=== PATIENT | male | born 1980 | race Caucasian/White ===

== ENCOUNTER 2019-01-27 08:33 | Day surgery (SDC) | payer MEDICARE, OTHER ==
[2019-01-25 16:17] VITALS: BMI 11.5
[~2019-01-27 08:33] MED LIST: LACTATED RINGERS 1,000 ML IV SCH
[2019-01-27] MEDS ORDERED: LIDOCAINE 1% 20 ML VIAL (10MG/ML) FOR IV START INTRADERMA ONE (09:20)
[2019-01-27 09:28] VITALS: RESP 18; TEMP 98.3
[2019-01-27 09:34] LABS: Glucose,Whole Blood 90 mg/dL (75-99)
[2019-01-27] MEDS ORDERED: PROPOFOL 10 MG/ML 20 ML VIAL IV ONE (09:45)
[2019-01-27] MEDS ORDERED: LIDOCAINE 1% INJ 10MG/ML (20 ML MDV) ONE (09:45)
--- NOTE | 2019-01-27 10:40 | P.PCN ---
Date of Procedure: 01/27/19 Procedure(s) Performed: Procedure: 1. Esophagogastroduodenoscopy and biopsy. 2. Colonoscopy and biopsy. Preoperative diagnosis: Nausea, dysphagia and diarrhea. Postoperative diagnosis: 1. Gastritis and suspected Tara esophagitis. 2. Small polyp duodenal bulb. 3. Diverticulosis of colon. 4. Biopsies obtained from the duodenum, duodenal bulb polyp, antrum, esophagus and proximal esophagus as well as terminal ileum and right colon. Preparation: HalfLytely prep. Sedation: Was provided by anesthesia. Brief clinical history: The patient is a 38-year-old male who I have evaluated in the office last month because of complaints of nausea, dysphagia and diarrhea. He reported 4-5 diarrheic movements a day. 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 The patient is on hydrocortisone for adrenal insufficiency. He had his thyroid removed at age 6 and is on thyroid replacement. 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 Procedure: With the patient on his left lateral decubitus position and after informed consent and adequate sedation, I passed a Olympus-GIF H190 video upper endoscope through the cricopharyngeus down the esophagus. The proximal esophagus showed whitish sticky exudates that could represent tara infection. The middle and distal esophagus showed no such features. GE junction was around 41 cm from the incisors and there was no definite stricture or hang up to the advancement of the endoscope. The endoscope was then passed into the stomach which was insufflated with air and inspected in detail including the retroflex view of the cardia. There was diffuse gastritis but no ulcers or bleeding. Pyloric channel did not show any ulcers. Duodenal bulb showed a small flat polyp in the proximal aspect that appeared benign. Post bulbar area and descen ding duodenum within normal limits. I obtained biopsies from the descending duodenum, duodenal bulb polyp, antrum and esophagus as well as in the proximal esophagus to rule out in detail esophagitis. I then proceeded to perform the colonoscopy. Perianal area did not show any fissures or fistulas. There were no masses felt on digital rectal examination. The Olympus CF H190L video colonoscope was then inserted in the rectum in the usual fashion and advanced to the cecum. I was not able to pass the endoscope into the terminal ileum but I was able to pass the biopsy forceps and obtain blind biopsy from the terminal ileum. There were multiple diverticular orifices seen scattered in the colon mostly in the sigmoid and left side. The mucosa appeared healthy. I obtained biopsies from the right colon to rule out microscopic colitis. The patient tolerated the procedure well. Plan: The patient was reassured. I will await pathology results and make further recommendations based on his course and biopsy results. I will keep you updated on his progress.
[2019-01-27 10:44] VITALS: BP 124/88; PULSE 91
== END 2019-01-27 11:28 | disposition home or self-care (01) ==
LOC: ORWHC2ENDO 08:33
DX: K29.80 Duodenitis without bleeding (principal); K31.9 Disease of stomach and duodenum, unspecified; K21.9 Gastro-esophageal reflux disease without esophagitis; K29.70 Gastritis, unspecified, without bleeding; K31.7 Polyp of stomach and duodenum; K57.30 Diverticulosis of large intestine without perforation or abscess without bleeding; E27.40 Unspecified adrenocortical insufficiency; E89.0 Postprocedural hypothyroidism; Z85.850 Personal history of malignant neoplasm of thyroid; M41.9 Scoliosis, unspecified; F32.9 Major depressive disorder, single episode, unspecified; J30.9 Allergic rhinitis, unspecified; Z79.890 Hormone replacement therapy; Z79.52 Long term (current) use of systemic steroids; Z79.899 Other long term (current) drug therapy
CPT/HCPCS: 45380; 43239; J2001; J2704; 88305; 88312

== ENCOUNTER 2022-02-10 12:11 | Emergency (ER) | payer MEDICARE, OTHER ==
[2022-02-10 12:52] VITALS: TEMP 98
--- NOTE | 2022-02-10 13:12 | XR ---
EXAMINATION TYPE: XR chest 2V DATE OF EXAM: 02/10/2022 COMPARISON: Chest x-ray November 30, 2011 HISTORY: Chest and left-sided rib pain after recent fall injury. TECHNIQUE: Frontal and lateral views of the chest are obtained. FINDINGS: Osseous structures redemonstrated demineralized. Underlying marked scoliosis is redemonstr ated. Chronic parenchymal changes bilaterally without suspicious new focal airspace opacity, pleural effusion, or pneumothorax seen. Cardiac silhouette size currently mildly enlarged. Surgical clips in the central upper abdomen are redemonstrated.. IMPRESSION: Chronic changes with new cardiomegaly. No new suspicious acute pulmonary process is note d.
[2022-02-10] MEDS ORDERED: ACET/COD 300 MG/30 MG STARTER PACK 6 TAB BTL PO STA (14:59)
--- NOTE | 2022-02-10 15:02 | ED ---
General Adult HPI - General Chief complaint: Recheck/Abnormal Lab/Rx Stated complaint: FALL-RibPain,Blood in Stool Time Seen by Provider: 02/10/22 14:14 Source: patient, RN notes reviewed Mode of arrival: ambulatory Limitations: no limitations - History of Present Illness Initial comments: This is a 41-year-old male who presents the emergency department for left-sided rib pain. Patient states that he tripped on a sidewalk last week and fell, landing on his left side. The pain has not gotten much better, and he is having difficulty sleeping at night. However, the patient states that he is not taking any medication for his pain and is only using a heating pad. The pain does make it hard for him to breathe. Patient denies any fevers, chills, sore throat, visual changes, cough, dyspnea, chest pain, palpitations, abdominal pain, nausea, vomiting, diarrhea, constipation, dysuria, hematuria, back pain, headaches, or weakness. Onset/Timin -: week(s) - Related Data Home Medications Medication Instructions Recorded Confirmed Cetirizine HCl [Zyrtec] 10 mg PO DAILY 01/25/19 01/25/19 Cholecalciferol [Vitamin D3] 10,000 unit PO DAILY 01/25/19 01/25/19 Cyanocobalamin (Vitamin B-12) 1,000 mcg PO DAILY 01/25/19 01/25/19 [Vitamin B-12] FLUoxetine HCL [PROzac] 10 mg PO DAILY 01/25/19 01/25/19 Fludrocortisone [Florinef] 0.1 mg PO DAILY 01/25/19 01/25/19 Hydrocortisone 10 mg PO DAILY@1600 01/25/19 01/27/19 Hydrocortisone [Cortef] 20 mg PO DAILY@0800 01/25/19 01/27/19 Levothyroxine Sodium [Synthroid] 112 mcg PO DAILY 01/25/19 01/25/19 Potassium 99 mg PO DAILY 01/25/19 01/25/19 Previous Rx's Medication Instructions Recorded Naproxen 500 mg PO BID PRN #20 tablet 02/10/22 Allergies Allergy/AdvReac Type Severity Reaction Status Date / Time No Known Allergies Allergy Verified 02/10/22 12:50 Review of Systems ROS Statement: Those systems with pertinent positive or pertinent negative responses have been documented in the HPI. ROS Other: All systems not noted in ROS Statement are negative. Past Medical History Past Medical History: Cancer, GERD/Reflux Additional Past Medical History / Comment(s): MEDULLARY THYROID CA. SEVERE DIARRHEA CHRONIC, DYSPHAGIA. HX PHEOCHROMOCYTOMA. HAS NODULE ON LIVER. History of Any Multi-Drug Resistant Organisms: None Reported Additional Past Surgical History / Comment(s): THYROIDECTOMY; EXC THYROID NODULES. BRODIE ADRENAL REMOVAL. Past Anesthesia/Blood Transfusion Reactions: No Reported Reaction Past Psychological History: No Psychological Hx Reported Smoking Status: Never smoker Past Alcohol Use History: None Reported Past Drug Use History: Marijuana - Past Family History Mother Additional Family Medical History / Comment(s): MULTIPLE ENDOCRINE NEOPLASIA, TYPE 2B. Brother(s) Family Medical History: Cancer Additional Family Medical History / Comment(s): MEDULLARY THYROID CA General Exam Limitations: no limitations General appearance: alert, in no apparent distress Head exam: Present: atraumatic, normocephalic, normal inspection Respiratory exam: Present: normal lung sounds bilaterally, other (Tenderness to palpation of the left ribs.). Absent: respiratory distress, wheezes, rales, rhonchi, stridor Cardiovascular Exam: Present: regular rate, normal rhythm, normal heart sounds. Absent: systolic murmur, diastolic murmur, rubs, gallop, clicks Neurological exam: Present: alert, oriented X3, CN II-XII intact Psychiatric exam: Present: normal affect, normal mood Skin exam: Present: warm, dry, intact, normal color. Absent: rash Course Vital Signs 02/10/22 02/10/22 12:50 15:12 Temperature 98 F Pulse Rate 116 H 102 H Respiratory 16 18 Rate Blood Pressure 120/82 125/89 O2 Sat by Pulse 91 L 96 Oximetry Medical Decision Making - Medical Decision Making This is a 41-year-old male who presents the emergency department for left rib pain after fall. X-ray obtained, which did not reveal any signs of a rib fracture or other injury. He did have a new cardiomegaly, which he will discuss with his primary care provider. Patient was given a prescription for naproxen and a starter pack for Tylenol #3. Advised he continue to apply heat. Reminded him to take several deep breaths a day to avoid developing a secondary pneum onia. Return precautions reviewed in depth, the patient is instructed to return to the emergency department with any new, worsening, or concerning symptoms. Patient verbalized understanding. This case was discussed in detail with the attending ED physician. Presentation, findings, and treatment plan discussed in detail as well. - Radiology Data Radiology results: report reviewed, image reviewed Disposition Clinical Impression: Rib pain on left side Disposition: HOME SELF-CARE Instructions (If sedation given, give patient instructions): Costochondritis (ED) Additional Instructions: Return to the emergency department with any new, worsening, or concerning symptoms. Take the naproxen twice daily as needed for pain. Do not take any other antiinflammatories such as Ibuprofen with the Naproxen. Take the Tylenol #3 at night until you know how it affects you. Continue to apply heat. Remember to take deep breaths several times a day to avoid developing a secondary pneumonia. Follow-up with your primary care provider in 1 to 2 days. Prescriptions: Naproxen 500 mg PO BID PRN #20 tablet PRN Reason: Pain Is patient prescribed a controlled substance at d/c from ED?: No Referrals: Ulisses Teran MD [Primary Care Provider] - 1-2 days
[2022-02-10 15:13] VITALS: BP 125/89; PULSE 102; RESP 18
== END 2022-02-10 15:13 | disposition home or self-care (01) ==
LOC: EC 12:11
DX: R07.81 Pleurodynia (principal); W18.09XA Striking against other object with subsequent fall, initial encounter
CPT/HCPCS: 71046; 99283

== ENCOUNTER 2022-02-13 21:42 | Inpatient (IN) | payer MEDICARE, OTHER ==
[2022-02-13 22:11] LABS: Basophils % (A) 0 %; Eosinophils % (A) 0 %; HCT 24.8 % (39.0-53.0); HGB 7.5 gm/dL (13.0-17.5); Hypochromasia Marked; Lymphocytes % (A) 7 %; MCH 23.3 pg (25.0-35.0); MCHC 30.1 g/dL (31.0-37.0); MCV 77.5 fL (80.0-100.0); Mean Platelet Volume 6.8; Monocytes # (A) 0.4 k/uL (0-1.0); Monocytes % (A) 3 %; Neutrophils # (A) 12.9 k/uL (1.3-7.7); Neutrophils % (A) 90 %; Platelet Count 722 k/uL (150-450); RBC 3.21 m/uL (4.30-5.90); RDW 13.6 % (11.5-15.5); WBC 14.5 k/uL (3.8-10.6)
[2022-02-13 22:21] LABS: ALT 17 U/L (4-49); AST 18 U/L (17-59); African American GFR (CKD) >90 (>60 ml/min/1.73 sqM); Albumin 3.5 g/dL (3.5-5.0); Alkaline Phosphatase 132 U/L (38-126); Anion Gap 6 mmol/L; Blood Urea Nitrogen 15 mg/dL (9-20); Calcium 8.3 mg/dL (8.4-10.2); Carbon Dioxide 32 mmol/L (22-30); Chloride 101 mmol/L (98-107); Glucose 116 mg/dL (74-99); Non-African American GFR(CKD) >90 (>60 ml/min/1.73 sqM); Sodium 139 mmol/L (137-145); Total Bilirubin 0.1 mg/dL (0.2-1.3); Total Protein 6.9 g/dL (6.3-8.2)
--- NOTE | 2022-02-14 01:08 | ED ---
GI Bleed HPI - General Chief complaint: GI Bleed Stated complaint: Abnormal labs Time Seen by Provider: 02/14/22 00:41 Source: patient, RN notes reviewed, old records reviewed Mode of arrival: ambulatory Limitations: no limitations - History of Present Illness Initial comments: This is a 41-year-old male DF for evaluation. Patient outpatient lab tests showing low hemoglobin. At this point patient has mild nausea no vomiting no abdominal pain history of normal colonoscopy. Patient also has underlying cancer MD complaint: blood on toilet paper, blood streaked stool -: week(s) Radiation: none Quality: painless Consistency: constant Improves with: none Worsens with: bowel movement Associated Symptoms: nausea, weakness Treatments Prior to Arrival: none - Related Data Home Medications Medication Instructions Recorded Confirmed Cetirizine HCl [Zyrtec] 10 mg PO DAILY 01/25/19 01/25/19 Cholecalciferol [Vitamin D3] 10,000 unit PO DAILY 01/25/19 01/25/19 Cyanocobalamin (Vitamin B-12) 1,000 mcg PO DAILY 01/25/19 01/25/19 [Vitamin B-12] FLUoxetine HCL [PROzac] 10 mg PO DAILY 01/25/19 01/25/19 Fludrocortisone [Florinef] 0.1 mg PO DAILY 01/25/19 01/25/19 Hydrocortisone 10 mg PO DAILY@1600 01/25/19 01/27/19 Hydrocortisone [Cortef] 20 mg PO DAILY@0800 01/25/19 01/27/19 Levothyroxine Sodium [Synthroid] 112 mcg PO DAILY 01/25/19 01/25/19 Potassium 99 mg PO DAILY 01/25/19 01/25/19 Previous Rx's Medication Instructions Recorded Naproxen 500 mg PO BID PRN #20 tablet 02/10/22 Allergies Allergy/AdvReac Type Severity Reaction Status Date / Time No Known Allergies Allergy Verified 02/13/22 21:50 Review of Systems ROS Statement: Those systems with pertinent positive or pertinent negative responses have been documented in the HPI. ROS Other: All systems not noted in ROS Statement are negative. Past Medical History Past Medical History: Cancer, GERD/Reflux Additional Past Medical History / Comment(s): MEDULLARY THYROID CA. SEVERE DIARRHEA CHRONIC, DYSPHAGIA. HX PHEOCHROMOCYTOMA. HAS NODULE ON LIVER, scoliosis History of Any Multi-Drug Resistant Organisms: None Reported Additional Past Surgical History / Comment(s): THYROIDECTOMY; EXC THYROID NODULES. BRODIE ADRENAL REMOVAL. Past Anesthesia/Blood Transfusion Reactions: No Reported Reaction Past Psychological History: No Psychological Hx Reported Smoking Status: Never smoker Past Alcohol Use History: None Reported Past Drug Use History: Marijuana - Past Family History Mother Additional Family Medical History / Comment(s): MULTIPLE ENDOCRINE NEOPLASIA, TYPE 2B. Brother(s) Family Medical History: Cancer Additional Family Medical History / Comment(s): MEDULLARY THYROID CA General Exam Limitations: no limitations General appearance: alert, in no apparent distress, cachectic Head exam: Present: atraumatic, normocephalic, normal inspection Eye exam: Present: normal appearance, PERRL, EOMI. Absent: scleral icterus, conjunctival injection, periorbital swelling ENT exam: Present: normal exam, mucous membranes moist Neck exam: Present: normal inspection. Absent: tenderness, meningismus, lymphadenopathy Respiratory exam: Present: normal lung sounds bilaterally. Absent: respiratory distress, wheezes, rales, rhonchi, stridor Cardiovascular Exam: Present: normal rhythm, tachycardia, normal heart sounds. Absent: systolic murmur, diastolic murmur, rubs, gallop, clicks GI/Abdominal exam: Present: soft, normal bowel sounds. Absent: distended, tenderness, guarding, rebound, rigid Rectal exam: Present: bloody stool Extremities exam: Present: normal inspection, full ROM, normal capillary refill. Absent: tenderness, pedal edema, joint swelling, calf tenderness Back exam: Present: normal inspection Neurological exam: Present: alert, oriented X3, CN II-XII intact Psychiatric exam: Present: normal affect, normal mood Skin exam: Present: warm, dry, intact, normal color. Absent: rash Course Vital Signs 02/13/22 02/14/22 21:47 01:12 Temperature 99.1 F Pulse Rate 122 H 110 H Respiratory 20 18 Rate Blood Pressure 143/91 141/107 O2 Sat by Pulse 95 99 Oximetry - Reevaluation(s) Reevaluation #1: 02/14/22 01:44 Medical record is reviewed Reevaluation #2: 02/14/22 01:44 Patient informed of results and questions answered Reevaluation #3: 02/14/22 01:44 Patient has no pain no bloody bowel movements here in the ER - Consultations Consultation #1: Spoke with Dr. matson agrees to admit the patient will consult GI Medical Decision Making - Medical Decision Making 41 male DEL with what a week and a half of bloody bright bloody bowel movements. Most recently today. Patient does have anemia and 7 n half, blood pressure stable patient will be admitted for GI evaluation treatment - Lab Data Result diagrams: 02/13/22 21:53 02/13/22 21:53 Lab Results 02/13/22 02/13/22 02/13/22 Range/Units 21:53 21:53 21:53 WBC 14.5 H (3.8-10.6) k/uL RBC 3.21 L (4.30-5.90) m/uL Hgb 7.5 L (13.0-17.5) gm/dL Hct 24.8 L (39.0-53.0) % MCV 77.5 L (80.0-100.0) fL MCH 23.3 L (25.0-35.0) pg MCHC 30.1 L (31.0-37.0) g/dL RDW 13.6 (11.5-15.5) % Plt Count 722 H (150-450) k/uL MPV 6.8 Neutrophils % 90 % Lymphocytes % 7 % Monocytes % 3 % Eosinophils % 0 % Basophils % 0 % Neutrophils # 12.9 H (1.3-7.7) k/uL Lymphocytes # 1.0 (1.0-4.8) k/uL Monocytes # 0.4 (0-1.0) k/uL Eosinophils # 0.0 (0-0.7) k/uL Basophils # 0.0 (0-0.2) k/uL Hypochromasia Marked APTT 22.3 (22.0-30.0) sec Sodium 139 (137-145) mmol/L Potassium 4.0 (3.5-5.1) mmol/L Chloride 101 (98-107) mmol/L Carbon Dioxide 32 H (22-30) mmol/L Anion Gap 6 mmol/L BUN 15 (9-20) mg/dL Creatinine 0.81 (0.66-1.25) mg/dL Est GFR (CKD-EPI)AfAm >90 (>60 ml/min/1.73 sqM) Est GFR (CKD-EPI)NonAf >90 (>60 ml/min/1.73 sqM) Glucose 116 H (74-99) mg/dL Calcium 8.3 L (8.4-10.2) mg/dL Total Bilirubin 0.1 L (0.2-1.3) mg/dL AST 18 (17-59) U/L ALT 17 (4-49) U/L Alkaline Phosphatase 132 H (38-126) U/L Troponin I (0.000-0.034) ng/mL Total Protein 6.9 (6.3-8.2) g/dL Albumin 3.5 (3.5-5.0) g/dL 02/13/22 Range/Units 21:53 WBC (3.8-10.6) k/uL RBC (4.30-5.90) m/uL Hgb (13.0-17.5) gm/dL Hct (39.0-53.0) % MCV (80.0-100.0) fL MCH (25.0-35.0) pg MCHC (31.0-37.0) g/dL RDW (11.5-15.5) % Plt Count (150-450) k/uL MPV Neutrophils % % Lymphocytes % % Monocytes % % Eosinophils % % Basophils % % Neutrophils # (1.3-7.7) k/uL Lymphocytes # (1.0-4.8) k/uL Monocytes # (0-1.0) k/uL Eosinophils # (0-0.7) k/uL Basophils # (0-0.2) k/uL Hypochromasia APTT (22.0-30.0) sec Sodium (137-145) mmol/L Potassium (3.5-5.1) mmol/L Chloride (98-107) mmol/L Carbon Dioxide (22-30) mmol/L Anion Gap mmol/L BUN (9-20) mg/dL Creatinine (0.66-1.25) mg/dL Est GFR (CKD-EPI)AfAm (>60 ml/min/1.73 sqM) Est GFR (CKD-EPI)NonAf (>60 ml/min/1.73 sqM) Glucose (74-99) mg/dL Calcium (8.4-10.2) mg/dL Total Bilirubin (0.2-1.3) mg/dL AST (17-59) U/L ALT (4-49) U/L Alkaline Phosphatase (38-126) U/L Troponin I <0.012 (0.000-0.034) ng/mL Total Protein (6.3-8.2) g/dL Albumin (3.5-5.0) g/dL Disposition Clinical Impression: Gastrointestinal hemorrhage, Anemia Disposition: ADMITTED IP TO THIS [facility] Condition: Serious Is patient prescribed a controlled substance at d/c from ED?: No Referrals: Ulisses Teran MD [Primary Care Provider] - 1-2 days
[2022-02-14] MEDS ORDERED: LORazepam 2 MG/ML INJ IV PRN (01:36)
[2022-02-14] MEDS ORDERED: ONDANSETRON 4 MG/2 ML VIAL IVP PRN (01:36)
[2022-02-14] MEDS ORDERED: NALOXONE 0.4 MG/ML 1 ML VIAL IV PRN (01:36)
[2022-02-14] MEDS ORDERED: ALBUTEROL HFA INHALER INHALATION PRN (09:22)
[2022-02-14] MEDS ORDERED: HYDROCORTISONE 10 MG TAB PO SCH ×2 (09:30→16:00)
[2022-02-14] MEDS: FLUDROCORTISONE 0.1 MG TAB PO SCH (11:05)
[2022-02-14] MEDS: LEVOTHYROXINE 112 MCG TAB PO SCH (11:06)
[2022-02-14] MEDS: SODIUM CHLORIDE 0.9% 1,000 ML IV SCH ×2 (11:10→23:04)
[2022-02-14 11:42] LABS: HCT 23.1 % (39.0-53.0); Hypochromasia Marked; MCH 23.6 pg (25.0-35.0); MCV 78.9 fL (80.0-100.0); Platelet Count 662 k/uL (150-450); RBC 2.93 m/uL (4.30-5.90); RDW 13.8 % (11.5-15.5); WBC 10.6 k/uL (3.8-10.6)
[2022-02-14 12:05] LABS: HGB 6.9 gm/dL (13.0-17.5)
--- NOTE | 2022-02-14 13:22 | P.CONS ---
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 States he normally has 1-2 bowel movements a day. Started having blood mixed in his stool 2-3 days ago. Continues to have bright red blood in the toilet. No previous history of GI bleed. He did undergo EGD and colonoscopy in [address] Souza. EGD reported findings of gastritis, esophagitis, and small duodenal polyp. Colonoscopy was significant for diverticulosis. Patient states he has no abdominal pain and no cramping related to bowel movements. Has no nausea or vomiting. He he was noted to have a low hemoglobin on admission of 7.5. apparently had been following with his primary care physician and had outpatient blood work done and was called and told to go to the emergency department for anemia. States he is currently not having any abdominal pain, nausea or vomiting. He did have a loose bowel movement this morning with bright red blood in toilet. Patient also takes naproxen 500 mg twice daily as needed. Review of Systems REVIEW OF SYSTEMS: CARDIOPULMONARY: No chest pain or shortness of breath. Gastrointestinal: No abdominal pain. No nausea or vomiting. No hematemesis, coffee-ground emesis. Bright red blood per rectum. GENITOURINARY: No dysuria or hematuria. MUSCULOSKELETAL: Reports normal range of motion., Joint pain. SKIN: No rashes. No jaundice. ENDOCRINE: No chills, fevers. No excessive weight gain or loss. No polydipsia or polyuria. PSYCHIATRIC: Unremarkable. NEUROLOGY: No change in mental status. Denies dizziness, headache. ENT: Vision unremarkable. CONSTITUTIONAL: No recent weight loss. No fever, chills, night sweats. Past Medical History Past Medical History: Cancer, GERD/Reflux Additional Past Medical History / Comment(s): MEDULLARY THYROID CA. SEVERE DIARRHEA CHRONIC, DYSPHAGIA. HX PHEOCHROMOCYTOMA. HAS NODULE ON LIVER, scolio sis History of Any Multi-Drug Resistant Organisms: None Reported Additional Past Surgical History / Comment(s): THYROIDECTOMY; EXC THYROID NODULES. BRODIE ADRENAL REMOVAL. Past Anesthesia/Blood Transfusion Reactions: No Reported Reaction Past Psychological History: No Psychological Hx Reported Smoking Status: Never smoker Past Alcohol Use History: None Reported Additional Past Alcohol Use History / Comment(s): ETOH - SOBER SINCE 2016. Past Drug Use History: Marijuana Additional Drug Use History / Comment(s): USE 1-2X PER DAY - Past Family History Mother Additional Family Medical History / Comment(s): MULTIPLE ENDOCRINE NEOPLASIA, TYPE 2B. Brother(s) Family Medical History: Cancer Additional Family Medical History / Comment(s): MEDULLARY THYROID CA Medications and Allergies Home Medications Medication Instructions Recorded Confirmed Type Hydrocortisone 20 mg PO DAILY 01/25/19 02/14/22 History Levothyroxine Sodium [Synthroid] 112 mcg PO DAILY 01/25/19 02/14/22 History Naproxen 500 mg PO BID PRN #20 tablet 02/10/22 02/14/22 Rx Albuterol Inhaler [Ventolin Hfa 2 puff INHALATION RT-Q4H PRN 02/14/22 02/14/22 History Inhaler] Albuterol Nebulized [Ventolin 2.5 mg INHALATION RT-Q6H PRN 02/14/22 02/14/22 History Nebulized] Fludrocortisone Acetate 0.1 mg PO DAILY 02/14/22 02/14/22 History Hydrocortisone [Cortef] 15 mg PO DAILY@1600 02/14/22 02/14/22 History Allergies Allergy/AdvReac Type Severity Reaction Status Date / Time No Known Allergies Allergy Verified 02/14/22 08:42 Physical Exam Vitals: Vital Signs Temp Pulse Pulse Resp BP BP Pulse Ox 02/14/22 05:10 98.1 F 110 H 20 135/84 98 02/14/22 04:24 108 H 18 123/99 02/14/22 04:05 103 H 18 152/118 99 02/14/22 01:12 110 H 18 141/107 99 02/13/22 21:47 99.1 F 122 H 20 143/91 95 Intake and Output 02/13/22 02/14/22 02/14/22 22:59 06:59 14:59 Intake Total 0 Balance 0 Intake: Oral 0 Other: Voiding Method Toilet # Voids 1 1 # Bowel Movements 1 Weight 39.009 kg 39.009 kg General appearance: The patient is alert, oriented, appears in no acute distress. HET: Head is normocephalic and atraumatic. Conjunctiva pink. Sclera anicteric. Neck: Supple without lymphadenopathy. Trachea midline. Heart: S1 S2. Regular rate and rhythm. Lungs: Clear to auscultation. Abdomen: Soft, thin, nontender, nondistended with bowel sounds. No guarding or rigidity. Skin: No rashes. No jaundice. Extremities: Normal skin color and turgor. No pedal edema. Neurological: No focal deficits. Alert and oriented x3. Results CBC & Chem 7: 02/14/22 11:08 02/13/22 21:53 Labs: Abnormal Lab Results - Last 24 Hours (Table) 02/13/22 02/13/22 Range/Units 21:53 21:53 WBC 14.5 H (3.8-10.6) k/uL RBC 3.21 L (4.30-5.90) m/uL Hgb 7.5 L (13.0-17.5) gm/dL Hct 24.8 L (39.0-53.0) % MCV 77.5 L (80.0-100.0) fL MCH 23.3 L (25.0-35.0) pg MCHC 30.1 L (31.0-37.0) g/dL Plt Count 722 H (150-450) k/uL Neutrophils # 12.9 H (1.3-7.7) k/uL Carbon Dioxide 32 H (22-30) mmol/L Glucose 116 H (74-99) mg/dL Calcium 8.3 L (8.4-10.2) mg/dL Total Bilirubin 0.1 L (0.2-1.3) mg/dL Alkaline Phosphatase 132 H (38-126) U/L Assessment and Plan (1) Lower GI bleed Narrative/Plan: 41-year-old who presented to the emergency department with complaints of lower GI bleed. Patient has a history of chronic diarrhea but has noticed bright red blood mixed with his stool for the last 2 days duration. He again had an episode today, is painless bleeding. No nausea or vomiting. He was noted to have an outpatient labs at that time showed his hemoglobin low and was directed to come to the emergency department. He was known to have a hemoglobin of 7.5 on admission. He was recently seen here 4 days ago in the emergency department for a fall and was discharged home. He does have a history of a prior EGD and colonoscopy done with Dr. Souza that was significant for gastritis and esophagitis. Colonoscopy significant for diverticulosis. Possible etiologies include diverticular bleed, large internal hemorrhoids, AVM, or other possible etiologies. There is no gastroenterology available this weekend, if patient is stable could consider possible discharge with outpatient colonoscopy next week. However if drop in hemoglobin or continued bleeding would recommend patient stay admitted to the hospital and can proceed with colonoscopy on Thursday. Current Visit: Yes Status: Acute Code(s): K92.2 - GASTROINTESTINAL HEMORRHAGE, UNSPECIFIED SNOMED Code(s): 70696990 (2) Anemia Current Visit: Yes Status: Acute Code(s): D64.9 - ANEMIA, UNSPECIFIED SNOMED Code(s): 880822870 Plan: 1. Continue symptomatic and supportive care 2. Daily CBCs, transfuse for hemoglobin less than 7 3. Type and screen and 1 unit PRBC transfused in order 4. Protonix 40 mg daily 5. Patient had a drop in his hemoglobin this morning, 1 unit PRBC transfusion ordered. Recommend inpatient stay with EGD/colonoscopy on Thursday. 6. Clear liquid diet 7. Avoid NSAIDs Thank you for allowing us to participate in the care of the patient, the GI service will be on stand by, gastroenterology will not be available at the hospital this weekend. If further evaluation by gastroenterology is required the patient will need transfer as per the primary team's discretion. Dr. Ping Muller I agree with the dictator's note, documented as a scribe by Lauryn Pennington.
--- NOTE | 2022-02-14 14:38 | P.HPIM ---
History of Present Illness H&P Date: 02/14/22 Chief Complaint: Bloody stools This is a pleasant 41-year-old patient who follows with Dr. ordoñez. Chronic stable medical conditions include multiple endocrine neoplasm. Type IIb, weight medullary thyroid carcinoma. The latter is being managed conservatively. Chronic dysphagia, scoliosis, GERD, hypothyroid. At her baseline patient has one or 2 bowel movements a day. Patient also had bilateral adrenal gland removed in 2018 and paraganglioma removed in 2010. Patient did heavy alcohol drinking for about 10 years stopped in 2016. Patient was sent in for a hemoglob in of 7.9. Patient started noticing dark stools on February 03. No abdominal pain. Does feel tired and rundown. Patient did have a colonoscopy [address] Souza. Does not remember having a EGD. Patient also fell around February 03 and did hurt his ribs. Patient been having some bloody stools. Review of systems: GEN.: Tired EYES: None HEENT: None NECK: None RESPIRATORY: None CARDIOVASCULAR: None GASTROINTESTINAL: As above GENITOURINARY: None MUSCULOSKELETAL: Some joint pain LYMPHATICS: None HEMATOLOGICAL: None PSYCHIATRY: Anxious NEUROLOGICAL: None Past medical history to include: GERD, multiple endocrine neoplasm in the with medullary thyroid carcinoma, intermittent dysphagia, bilateraladrenelomy for pheochromocytoma, and surgical removal of paraganglioma, scoliosis, 10 years of excessive alcohol use stopped in 2016. Marijuana 2 puffs every 2 hours Social history: Lives with her aunt. Marijuana 2 puffs every 2 hours. 10 units of excessive alcohol stopped in 2016 Family history: Multiple endocrine neoplasm the type IIb Physical examination: VITAL SIGNS: 99.1, 122, 20, 143/91, 95% room air GENERAL: BMI 11.7, loss of muscle mass subcutaneous fat. EYES: Pupils equal. Conjunctiva normal. HEENT: External appearance of nose and ears normal, oral cavity grossly normal. NECK: JVD not raised; masses not palpable. HEART: First and second heart sounds are normal; no edema. LUNGS: Respiratory rate normal; clear to auscultation. ABDOMEN: Soft, nontender, liver spleen not palpable, no masses palpable. . Incision scars PSYCH: Alert and oriented x3; mood and affect anxiousl. MUSCULOSKELETAL:No Clubbing/cyanosis;muscles-grossly intact. Bony prominences. Scoliosis NEUROLOGICAL: Cranial nerves grossly intact; no facial asymmetry, power and sensation grossly intact. LYMPHATICS: No lymph nodes palpable in the axilla and neck INVESTIGATIONS, reviewed in the clinical context: February 14: White count 10.6 hemoglobin 6.9 platelets 662 Admission labs: White count 14.5 hemoglobin 7.5 platelets 722 potassium 4 creatinine 0.81 Chest x-ray film personally reviewed by me-abnormal bone structure. Chronic changes in the lung. Assessment and plan: -Acute GI bleed, upper cannot be ruled out. Present since February 03 with some dark and some bloody stool. No abdominal pain. Note patient has been on naproxen. Add PPI. GI service is only available in the hospital today. Patient will need EGD and a coloscopy. -Acute GI blood loss anemia. Hemoglobin 6.9 Transfuse 1 unit of PRBC -Severe protein calorie malnutrition. BMI 11.7 Diet renal supplementation down the road -Chronic adrenal insufficiency with bilateraladrenalectomy The change patient to IV hydrocortisone 25 mg every 8, until patient goes endoscopy -Multiple endocrine neoplasm 2b with medullary thyroid carcinoma -Chronic scoliosis -Hypothyroid Synthroid 112 g a day Transfuse 1 unit of blood. IV fluids. Clear liquids. IV hydrocortisone. Discussed with GI. Services not available on the weekend. For endoscopy Thursday. IV fluids. Given the complexity and severity of patient's condition expect the patient to be in the hospital at least for 2 overnights Past Medical History Past Medical History: Cancer, GERD/Reflux Additional Past Medical History / Comment(s): MEDULLARY THYROID CA. SEVERE DIARRHEA CHRONIC, DYSPHAGIA. HX PHEOCHROMOCYTOMA. HAS NODULE ON LIVER, scoliosis History of Any Multi-Drug Resistant Organisms: None Reported Additional Past Surgical History / Comment(s): THYROIDECTOMY; EXC THYROID NODULES. BRODIE ADRENAL REMOVAL. Past Anesthesia/Blood Transfusion Reactions: No Reported Reaction Past Psychological History: No Psychological Hx Reported Smoking Status: Never smoker Past Alcohol Use History: None Reported Additional Past Alcohol Use History / Comment(s): ETOH - SOBER SINCE 2017. Past Drug Use History: Marijuana Additional Drug Use History / Comment(s): USE 1-2X PER DAY - Past Family History Mother Additional Family Medical History / Comment(s): MULTIPLE ENDOCRINE NEOPLASIA, TYPE 2B. Brother(s) Family Medical History: Cancer Additional Family Medical History / Comment(s): MEDULLARY THYROID CA Medications and Allergies Home Medications Medication Instructions Recorded Confirmed Type Hydrocortisone 20 mg PO DAILY 01/25/19 02/14/22 History Levothyroxine Sodium [Synthroid] 112 mcg PO DAILY 01/25/19 02/14/22 History Naproxen 500 mg PO BID PRN #20 tablet 02/10/22 02/14/22 Rx Albuterol Inhaler [Ventolin Hfa 2 puff INHALATION RT-Q4H PRN 02/14/22 02/14/22 History Inhaler] Albuterol Nebulized [Ventolin 2.5 mg INHALATION RT-Q6H PRN 02/14/22 02/14/22 History Nebulized] Fludrocortisone Acetate 0.1 mg PO DAILY 02/14/22 02/14/22 History Hydrocortisone [Cortef] 15 mg PO DAILY@1600 02/14/22 02/14/22 History Allergies Allergy/AdvReac Type Severity Reaction Status Date / Time No Known Allergies Allergy Verified 02/14/22 08:42 Physical Exam Vitals: Vital Signs Temp Pulse Pulse Resp BP BP Pulse Ox 02/14/22 11:11 98 F 103 H 18 141/96 94 L 02/14/22 08:00 97.9 F 101 H 16 139/98 97 02/14/22 05:10 98.1 F 110 H 20 135/84 98 02/14/22 04:24 108 H 18 123/99 02/14/22 04:05 103 H 18 152/118 99 02/14/22 01:12 110 H 18 141/107 99 02/13/22 21:47 99.1 F 122 H 20 143/91 95 Intake and Output 02/13/22 02/14/22 02/14/22 22:59 06:59 14:59 Intake Total 0 Balance 0 Intake: Oral 0 Other: Voiding Method Toilet # Voids 1 1 # Bowel Movements 1 Weight 39.009 kg 39.009 kg Results CBC & Chem 7: 02/14/22 11:08 02/13/22 21:53 Labs: Abnormal Lab Results - Last 24 Hours (Table) 02/13/22 02/13/22 02/14/22 Range/Units 21:53 21:53 11:08 WBC 14.5 H (3.8-10.6) k/uL RBC 3.21 L 2.93 L (4.30-5.90) m/uL Hgb 7.5 L 6.9 L* (13.0-17.5) gm/dL Hct 24.8 L 23.1 L (39.0-53.0) % MCV 77.5 L 78.9 L (80.0-100.0) fL MCH 23.3 L 23.6 L (25.0-35.0) pg MCHC 30.1 L 30.0 L (31.0-37.0) g/dL Plt Count 722 H 662 H (150-450) k/uL Neutrophils # 12.9 H (1.3-7.7) k/uL Carbon Dioxide 32 H (22-30) mmol/L Glucose 116 H (74-99) mg/dL Calcium 8.3 L (8.4-10.2) mg/dL Total Bilirubin 0.1 L (0.2-1.3) mg/dL Alkaline Phosphatase 132 H (38-126) U/L
[2022-02-14] MEDS: HYDROCORTISONE SUCCINATE 100 MG/2 ML VIAL IV SCH ×2 (16:24→23:03)
[2022-02-14] MEDS: PANTOPRAZOLE 40 MG TABLET PO SCH (16:24)
[2022-02-15] MEDS: PANTOPRAZOLE 40 MG TABLET PO SCH ×2 (06:28→16:49)
[2022-02-15] MEDS: LEVOTHYROXINE 112 MCG TAB PO SCH (06:28)
[2022-02-15 06:49] LABS: Glucose,Whole Blood 114 mg/dL (75-99)
[2022-02-15 07:10] LABS: Basophils # (A) 0.1 k/uL (0-0.2); Basophils % (A) 0 %; Eosinophils % (A) 0 %; HCT 30.1 % (39.0-53.0); Hypochromasia Marked; Lymphocytes # (A) 1.1 k/uL (1.0-4.8); Lymphocytes % (A) 5 %; MCH 23.9 pg (25.0-35.0); MCHC 29.7 g/dL (31.0-37.0); MCV 80.6 fL (80.0-100.0); Mean Platelet Volume 6.9; Monocytes # (A) 0.6 k/uL (0-1.0); Monocytes % (A) 3 %; Neutrophils # (A) 19.1 k/uL (1.3-7.7); Neutrophils % (A) 91 %; Platelet Count 650 k/uL (150-450); Poikilocytosis Moderate; RBC 3.74 m/uL (4.30-5.90); RDW 13.9 % (11.5-15.5); WBC 21.1 k/uL (3.8-10.6)
[2022-02-15 07:24] LABS: HGB 8.9 gm/dL (13.0-17.5)
[2022-02-15 07:27] LABS: ALT 15 U/L (4-49); AST 18 U/L (17-59); African American GFR (CKD) >90 (>60 ml/min/1.73 sqM); Albumin 2.9 g/dL (3.5-5.0); Alkaline Phosphatase 117 U/L (38-126); Anion Gap 5 mmol/L; Blood Urea Nitrogen 15 mg/dL (9-20); Calcium 7.5 mg/dL (8.4-10.2); Carbon Dioxide 28 mmol/L (22-30); Chloride 107 mmol/L (98-107); Glucose 119 mg/dL (74-99); Magnesium 1.8 mg/dL (1.6-2.3); Non-African American GFR(CKD) >90 (>60 ml/min/1.73 sqM); Phosphorus 3.7 mg/dL (2.5-4.5); Potassium 3.7 mmol/L (3.5-5.1); Sodium 140 mmol/L (137-145); Total Bilirubin 0.5 mg/dL (0.2-1.3); Total Protein 5.9 g/dL (6.3-8.2)
[2022-02-15] MEDS: HYDROCORTISONE SUCCINATE 100 MG/2 ML VIAL IV SCH ×3 (08:33→23:35)
[2022-02-15] MEDS: FLUDROCORTISONE 0.1 MG TAB PO SCH (08:33)
[2022-02-15] MEDS: SODIUM CHLORIDE 0.9% 1,000 ML IV SCH (12:21)
--- NOTE | 2022-02-15 15:08 | P.PN ---
Progress Note - Text Progress Note Date: 02/15/22 Chief Complaint: Bloody stools This is a pleasant 41-year-old patient who follows with Dr. ordoñez. Chronic stable medical conditions include multiple endocrine neoplasm. Type IIb, weight medullary thyroid carcinoma. The latter is being managed conservatively. Chron ic dysphagia, scoliosis, GERD, hypothyroid. At her baseline patient has one or 2 bowel movements a day. Patient also had bilateral adrenal gland removed in 2018 and paraganglioma removed in 2010. Patient did heavy alcohol drinking for about 10 years stopped in 2016. Patient was sent in for a hemoglobin of 7.9. Patient started noticing dark stools on February 03. No abdominal pain. Does feel tired and rundown. Patient did have a colonoscopy [address] Souza. Does not remember having a EGD. Patient also fell around February 03 and did hurt his ribs. Patient been having some bloody stools. February 15: Did receive a unit of blood yesterday. Some dock stool today. Liquid diet. Her endoscopy Thursday. No abdominal pain. Active Medications Albuterol Sulfate (Albuterol Hfa Inhaler) 2 puff INHALATION RT-Q4H PRN PRN Reason: Shortness Of Breath Fludrocortisone Acetate (Fludrocortisone 0.1 Mg Tab) 0.1 mg PO DAILY [facility] Last Admin: 02/15/22 08:33 Dose: 0.1 mg Documented by: Hydrocortisone Sodium Succinate (Hydrocortisone Succinate 100 Mg/2 Ml Vial) 25 mg IV Q8HR [facility] Last Admin: 02/15/22 08:33 Dose: 25 mg Documented by: Sodium Chloride (Saline 0.9%) 1,000 mls @ 120 mls/hr IV .Q8H20M [facility] Last Admin: 02/15/22 12:21 Dose: 75 mls/hr Documented by: Levothyroxine Sodium (Levothyroxine 112 Mcg Tab) 112 mcg PO DAILY@0630 [facility] Last Admin: 02/15/22 06:28 Dose: 112 mcg Documented by: Lorazepam (Lorazepam 2 Mg/Ml Inj) 0.5 mg IV Q6HR PRN PRN Reason: Anxiety Naloxone HCl (Naloxone 0.4 Mg/Ml 1 Ml Vial) 0.2 mg IV Q2M PRN PRN Reason: Opioid Reversal Ondansetron HCl (Ondansetron 4 Mg/2 Ml Vial) 4 mg IVP Q8HR PRN PRN Reason: Nausea And Vomiting Pantoprazole Sodium (Pantoprazole 40 Mg Tablet) 40 mg PO AC-BID [facility] Last Admin: 02/15/22 06:28 Dose: 40 mg Documented by: Polyethylene Glycol/Electrolytes (Peg 3350-Na Sulf,Bicarb,Cl/Kcl 4,000 Ml Bottle) 4,000 ml PO ONCE ONE Stop: 02/16/22 20:01 Past medical history to include: GERD, multiple endocrine neoplasm in the with medullary thyroid carcinoma, intermittent dysphagia, bilateraladrenelomy for pheochromocytoma, and surgical removal of paraganglioma, scoliosis, 10 years of excessive alcohol use stopped in 2017. Marijuana 2 puffs every 2 hours Social history: Lives with her aunt. Marijuana 2 puffs every 2 hours. 10 units of excessive alcohol stopped in 2016 Family history: Multiple endocrine neoplasm the type IIb Physical examination: VITAL SIGNS: 98.2, 120, 20, 140/102, 92% room air GENERAL: BMI 11.7, loss of muscle mass subcutaneous fat. EYES: Pupils equal. Conjunctiva normal. HEENT: External appearance of nose and ears normal, oral cavity grossly normal. NECK: JVD not raised; masses not palpable. HEART: First and second heart sounds are normal; no edema. LUNGS: Respiratory rate normal; clear to auscultation. ABDOMEN: Soft, nontender, liver spleen not palpable, no masses palpable. . Incision scars PSYCH: Alert and oriented x3; mood and affect anxiousl. MUSCULOSKELETAL:No Clubbing/cyanosis;muscles-grossly intact. Bony prominences. Scoliosis INVESTIGATIONS, reviewed in the clinical context: February 15: White count 21.1 hemoglobin 8.9 potassium 3.7 February 14: White count 10.6 hemoglobin 6.9 platelets 662 Admission labs: White count 14.5 hemoglobin 7.5 platelets 722 potassium 4 creatinine 0.81 Chest x-ray film personally reviewed by me-abnormal bone structure. Chronic changes in the lung. Assessment and plan: -Acute GI bleed, upper cannot be ruled out. Present since February 03 with some dark and some bloody stool. No abdominal pain. Note patient has been on naproxen. Add PPI. GI service is only available in the hospital today. Patient will need EGD and a coloscopy. -Acute GI blood loss anemia. Received 1 unit of PRBC -Severe protein calorie malnutrition. BMI 11.7 Diet renal supplementation down the road -Chronic adrenal insufficiency with bilateraladrenalectomy The change patient to IV hydrocortisone 25 mg every 8, until patient goes endoscopy -Multiple endocrine neoplasm 2b with medullary thyroid carcinoma -Chronic scoliosis -Hypothyroid Synthroid 112 g a day Renal liquid diet. CBC tomorrow. Pending endoscopy Thursday. Discussed with patient.
[2022-02-16] MEDS: LEVOTHYROXINE 112 MCG TAB PO SCH (07:07)
[2022-02-16] MEDS: PANTOPRAZOLE 40 MG TABLET PO SCH ×2 (07:07→16:26)
[2022-02-16] MEDS: FLUDROCORTISONE 0.1 MG TAB PO SCH (08:47)
[2022-02-16] MEDS: HYDROCORTISONE SUCCINATE 100 MG/2 ML VIAL IV SCH ×2 (08:47→16:26)
[2022-02-16 09:54] LABS: Basophils % (A) 0 %; Eosinophils # (A) 0.1 k/uL (0-0.7); Eosinophils % (A) 1 %; HCT 29.5 % (39.0-53.0); HGB 8.7 gm/dL (13.0-17.5); Hypochromasia Marked; Lymphocytes # (A) 1.1 k/uL (1.0-4.8); Lymphocytes % (A) 9 %; MCHC 29.5 g/dL (31.0-37.0); MCV 81.6 fL (80.0-100.0); Mean Platelet Volume 6.9; Monocytes # (A) 0.7 k/uL (0-1.0); Monocytes % (A) 6 %; Neutrophils % (A) 83 %; Platelet Count 616 k/uL (150-450); Poikilocytosis Moderate; RBC 3.61 m/uL (4.30-5.90); RDW 14.6 % (11.5-15.5); WBC 12.1 k/uL (3.8-10.6)
--- NOTE | 2022-02-16 13:34 | P.PN ---
Progress Note - Text Progress Note Date: 02/16/22 Chief Complaint: Bloody stools This is a pleasant 41-year-old patient who follows with Dr. ordoñez. Chronic stable medical conditions include multiple endocrine neoplasm. Type IIb, weight medullary thyroid carcinoma. The latter is being managed conservatively. Chron ic dysphagia, scoliosis, GERD, hypothyroid. At her baseline patient has one or 2 bowel movements a day. Patient also had bilateral adrenal gland removed in 2018 and paraganglioma removed in 2010. Patient did heavy alcohol drinking for about 10 years stopped in 2016. Patient was sent in for a hemoglobin of 7.9. Patient started noticing dark stools on February 03. No abdominal pain. Does feel tired and rundown. Patient did have a colonoscopy [address] Souza. Does not remember having a EGD. Patient also fell around February 03 and did hurt his ribs. Patient been having some bloody stools. February 15: Did receive a unit of blood yesterday. Some dock stool today. Liquid diet. Her endoscopy Thursday. No abdominal pain. February 16: Continues to have dark stool some bloody. No abdominal pain. Hemoglobin stable. Unclear liquid diet. Endoscopy tomorrow. Active Medications Albuterol Sulfate (Albuterol Hfa Inhaler) 2 puff INHALATION RT-Q4H PRN PRN Reason: Shortness Of Breath Fludrocortisone Acetate (Fludrocortisone 0.1 Mg Tab) 0.1 mg PO DAILY REPLACED BY [facility] Last Admin: 02/16/22 08:47 Dose: 0.1 mg Documented by: Hydrocortisone Sodium Succinate (Hydrocortisone Succinate 100 Mg/2 Ml Vial) 25 mg IV Q8HR REPLACED BY [facility] Last Admin: 02/16/22 08:47 Dose: 25 mg Documented by: Levothyroxine Sodium (Levothyroxine 112 Mcg Tab) 112 mcg PO DAILY@0630 REPLACED BY [facility] Last Admin: 02/16/22 07:07 Dose: 112 mcg Documented by: Lorazepam (Lorazepam 2 Mg/Ml Inj) 0.5 mg IV Q6HR PRN PRN Reason: Anxiety Naloxone HCl (Naloxone 0.4 Mg/Ml 1 Ml Vial) 0.2 mg IV Q2M PRN PRN Reason: Opioid Reversal Ondansetron HCl (Ondansetron 4 Mg/2 Ml Vial) 4 mg IVP Q8HR PRN PRN Reason: Nausea And Vomiting Pantoprazole Sodium (Pantoprazole 40 Mg Tablet) 40 mg PO AC-BID [facility] Last Admin: 02/16/22 07:07 Dose: 40 mg Documented by: Polyethylene Glycol/Electrolytes (Peg 3350-Na Sulf,Bicarb,Cl/Kcl 4,000 Ml Bottle) 4,000 ml PO ONCE ONE Stop: 02/16/22 20:01 Past medical history to include: GERD, multiple endocrine neoplasm in the with medullary thyroid carcinoma, intermittent dysphagia, bilateraladrenelomy for pheochromocytoma, and surgical removal of paraganglioma, scoliosis, 10 years of excessive alcohol use stopped in 2017. Marijuana 2 puffs every 2 hours Social history: Lives with her aunt. Marijuana 2 puffs every 2 hours. 10 units of excessive alcohol stopped in 2016 Family history: Multiple endocrine neoplasm the type IIb Physical examination: VITAL SIGNS: 98.7, 104, 16, 149.98, 95% room air GENERAL: BMI 11.7, loss of muscle mass subcutaneous fat. EYES: Pupils equal. Conjunctiva normal. HEENT: External appearance of nose and ears normal, oral cavity grossly normal. NECK: JVD not raised; masses not palpable. HEART: First and second heart sounds are normal; no edema. LUNGS: Respiratory rate normal; clear to auscultation. ABDOMEN: Soft, nontender, liver spleen not palpable, no masses palpable. . Incision scars PSYCH: Alert and oriented x3; mood and affect anxiousl. MUSCULOSKELETAL:No Clubbing/cyanosis;muscles-grossly intact. Bony prominences. Scoliosis INVESTIGATIONS, reviewed in the clinical context: February 16: Hemoglobin 8.7 February 15: White count 21.1 hemoglobin 8.9 potassium 3.7 February 14: White count 10.6 hemoglobin 6.9 platelets 662 Admission labs: White count 14.5 hemoglobin 7.5 platelets 722 potassium 4 creatinine 0.81 Chest x-ray film personally reviewed by me-abnormal bone structure. Chronic changes in the lung. Assessment and plan: -Acute GI bleed, upper cannot be ruled out. Present since February 03 with some dark and some bloody stool. No abdominal pain. : Slow to respond Pending endoscopy on Thursday. -Acute GI blood loss anemia. Received 1 unit of PRBC -Severe protein calorie malnutrition. BMI 11.[address] -Chronic adrenal insufficiency with bilateraladrenalectomy IV hydrocortisone 25 mg every 8, until patient gets endoscopy -Multiple endocrine neoplasm 2b with medullary thyroid carcinoma -Chronic scoliosis -Hypothyroid Synthroid 112 g a day Continue liquid diet. Follow CBC. Pending endoscopy Thursday. Discussed with patient.
[2022-02-16] MEDS ORDERED: PEG 3350-NA SULF,BICARB,CL/KCL 4,000 ML BOTTLE PO ONE (20:00)
[2022-02-17] MEDS: HYDROCORTISONE SUCCINATE 100 MG/2 ML VIAL IV SCH ×3 (00:42→16:44)
[2022-02-17] MEDS: PANTOPRAZOLE 40 MG TABLET PO SCH ×2 (06:55→16:44)
[2022-02-17] MEDS: LEVOTHYROXINE 112 MCG TAB PO SCH (06:55)
[2022-02-17 07:08] LABS: Basophils % (A) 0 %; Eosinophils % (A) 0 %; HCT 27.6 % (39.0-53.0); HGB 8.5 gm/dL (13.0-17.5); Hypochromasia Marked; Lymphocytes # (A) 0.8 k/uL (1.0-4.8); Lymphocytes % (A) 7 %; MCH 24.7 pg (25.0-35.0); MCHC 30.6 g/dL (31.0-37.0); MCV 80.8 fL (80.0-100.0); Mean Platelet Volume 6.8; Monocytes # (A) 0.4 k/uL (0-1.0); Monocytes % (A) 4 %; Neutrophils # (A) 10.1 k/uL (1.3-7.7); Neutrophils % (A) 88 %; Platelet Count 604 k/uL (150-450); Poikilocytosis Slight; RBC 3.42 m/uL (4.30-5.90); WBC 11.5 k/uL (3.8-10.6)
[2022-02-17] MEDS: FLUDROCORTISONE 0.1 MG TAB PO SCH (08:58)
--- NOTE | 2022-02-17 13:12 | P.PN ---
Subjective Progress Note Date: 02/17/22 Principal diagnosis: GI bleed, anemia Patient seen today as a follow-up. He was initially scheduled to undergo EGD and colonoscopy today however patient did not finish his prep. Hemoglobin has been stable over the weekend. He denies any further rectal bleeding. Denies any abdominal pain, nausea or vomiting. Today's hemoglobin is 8.5. Objective - Vital Signs Vital signs: Vital Signs Temp 97.9 F 02/17/22 08:00 Pulse 104 H 02/17/22 08:00 Resp 18 02/17/22 08:00 BP 136/99 02/17/22 08:00 Pulse Ox 94 L 02/17/22 08:00 FiO2 Intake & Output 02/16/22 02/17/22 02/17/22 18:59 06:59 18:59 Intake Total 250 Output Total 1 2 Balance 250 -1 -2 Intake: IV 10 Invasive Line 1 10 Oral 240 Output: Stool 1 2 Other: Voiding Method Toilet Toilet # Voids 2 1 # Bowel Movements 1 1 - Exam General appearance: The patient is alert, oriented, appears in no acute distress. HET: Head is normocephalic and atraumatic. Conjunctiva pink. Sclera anicteric. Neck: Supple without lymphadenopathy. Abdomen: Soft, thin, nontender, nondistended with bowel sounds. No guarding or rigidity. Extremities: Normal skin color and turgor. No pedal edema Skin: No rashes, no jaundice Neurological: No focal deficits. Alert and oriented -3. - Labs CBC & Chem 7: 02/17/22 05:44 02/15/22 06:58 Labs: Abnormal Lab Results - Last 24 Hours (Table) 02/17/22 Range/Units 05:44 WBC 11.5 H (3.8-10.6) k/uL RBC 3.42 L (4.30-5.90) m/uL Hgb 8.5 L (13.0-17.5) gm/dL Hct 27.6 L (39.0-53.0) % MCH 24.7 L (25.0-35.0) pg MCHC 30.6 L (31.0-37.0) g/dL Plt Count 604 H (150-450) k/uL Neutrophils # 10.1 H (1.3-7.7) k/uL Lymphocytes # 0.8 L (1.0-4.8) k/uL Assessment and Plan (1) Lower GI bleed Narrative/Plan: 41-year-old who presented to the emergency department with complaints of lower GI bleed. Patient has a history of chronic diarrhea but has noticed bright red blood mixed with his stool for the last 2 days duration. He again had an episode today, is painless bleeding. No nausea or vomiting. He was noted to have an outpatient labs at that time showed his hemoglobin low and was directed to come to the emergency department. He was known to have a hemoglobin of 7.5 on admission. He was recently seen here 4 days ago in the emergency department for a fall and was discharged home. He does have a history of a prior EGD and c olonoscopy done with Dr. Souza that was significant for gastritis and esophagitis. Colonoscopy significant for diverticulosis. Possible etiologies include diverticular bleed, large internal hemorrhoids, AVM, or other possible etiologies. There is no gastroenterology available this weekend, if patient is stable could consider possible discharge with outpatient colonoscopy next week. However if drop in hemoglobin or continued bleeding would recommend patient stay admitted to the hospital and can proceed with colonoscopy on Thursday. The patient did not complete bowel prep. Will reschedule EGD and colonoscopy for tomorrow and finish bowel prep this afternoon. Current Visit: Yes Status: Acute Code(s): K92.2 - GASTROINTESTINAL HEMORRHAGE, UNSPECIFIED SNOMED Code(s): 56868406 (2) Anemia Current Visit: Yes Status: Acute Code(s): D64.9 - ANEMIA, UNSPECIFIED SNOMED Code(s): 013609760 Plan: 1. Continue symptomatic and supportive care 2. Daily CBCs, transfuse for hemoglobin less than 7 3. Clear liquid diet, nothing by mouth after midnight 4. Protonix 40 mg daily 5. Due to patient not completing his bowel prep, will reschedule EGD and colonoscopy tomorrow 6. Avoid NSAIDs Thank you for this consultation, we will continue to follow. Dr. Ping Muller I agree with the dictator's note, documented as a scribe by Lauryn Pennington.
--- NOTE | 2022-02-18 00:28 | P.PN ---
Subjective Progress Note Date: 02/17/22 Chief Complaint: Bloody stools This is a pleasant 41-year-old patient who follows with Dr. ordoñez. Chronic stable medical conditions include multiple endocrine neoplasm. Type IIb, weight medullary thyroid carcinoma. The latter is being managed conservatively. Chronic dysphagia, scoliosis, GERD, hypothyroid. At her baseline patient has one or 2 bowel movements a day. Patient also had bilateral adrenal gland removed in 2017 and paraganglioma removed in 2010. Patient did heavy alcohol drinking for about 10 years stopped in 2016. Patient was sent in for a hemoglobin of 7.9. Patient started noticing dark stools on February 03. No abdominal pain. Does feel tired and rundown. Patient did have a colonoscopy [address] Souza. Does not remember having a EGD. Patient also fell around February 03 and did hurt his ribs. Patient been having some bloody stools. February 15: Did receive a unit of blood yesterday. Some dock stool today. Liquid diet. Her endoscopy Thursday. No abdominal pain. February 16: Continues to have dark stool some bloody. No abdominal pain. Hemoglobi n stable. Unclear liquid diet. Endoscopy tomorrow. 02/17/2022 Patient is seen in follow-up this morning was initially scheduled to undergo EGD/colonoscopy with Dr. Dent today although was unable to complete the bowel prep. Patient was able to complete one glass of GoLYTELY and GI continues to f ollow and will continue with prep with possible endoscopically in the morning. Patient denies chest pain, shortness of breath, or palpitations. Patient is afebrile. Patient denies any nausea or vomiting and is currently clear liquids with the continued bowel prep. A follow-up with repeat labs and monitor hemoglobin closely. Patient denies any blood noted in the stool as patient also has had 4 loose stool episodes since starting the prep. Hemoglobin is stable today at 8.5. Active Medications Albuterol Sulfate (Albuterol Hfa Inhaler) 2 puff INHALATION RT-Q4H PRN PRN Reason: Shortness Of Breath Fludrocortisone Acetate (Fludrocortisone 0.1 Mg Tab) 0.1 mg PO DAILY [facility] Last Admin: 02/17/22 08:58 Dose: 0.1 mg Hydrocortisone Sodium Succinate (Hydrocortisone Succinate 100 Mg/2 Ml Vial) 25 mg IV Q8HR [facility] Last Admin: 02/17/22 08:58 Dose: 25 mg Levothyroxine Sodium (Levothyroxine 112 Mcg Tab) 112 mcg PO DAILY@0630 [facility] Last Admin: 02/17/22 06:55 Dose: 112 mcg Lorazepam (Lorazepam 2 Mg/Ml Inj) 0.5 mg IV Q6HR PRN PRN Reason: Anxiety Naloxone HCl (Naloxone 0.4 Mg/Ml 1 Ml Vial) 0.2 mg IV Q2M PRN PRN Reason: Opioid Reversal Ondansetron HCl (Ondansetron 4 Mg/2 Ml Vial) 4 mg IVP Q8HR PRN PRN Reason: Nausea And Vomiting Pantoprazole Sodium (Pantoprazole 40 Mg Tablet) 40 mg PO AC-BID [facility] Last Admin: 02/17/22 06:55 Dose: 40 mg Physical examination: GENERAL: thin built, emaciated, alert and oriented x3, loss of muscle mass subcutaneous fat. EYES: Pupils equal. Conjunctiva normal. HEENT: External appearance of nose and ears normal, oral cavity grossly normal. NECK: JVD not raised; masses not palpable. HEART: First and second heart sounds are normal; no edema. LUNGS: Respiratory rate normal; clear to auscultation. ABDOMEN: Soft, nontender,normal bowel sounds noted, no masses palpable. . Incision scars PSYCH: Alert and oriented x3; mood and affect anxious. MUSCULOSKELETAL:No Clubbing/cyanosis;muscles-grossly intact. Bony prominences. Scoliosis Assessment: -Acute GI bleed, upper cannot be ruled out. Tentatively scheduled for EGD/Colonoscopy today, poor bowel prep, rescheduled for 02/18/22 -Acute GI blood loss anemia. secondary to above -Severe protein calorie malnutrition. BMI 11.7 -Chronic adrenal insufficiency with bilateral adrenalectomy -Multiple endocrine neoplasm with medullary thyroid carcinoma -Chronic scoliosis -Hypothyroid -No code Plan: Continue clear liquid diet. Continue bowel prep as patient did not complete the golytely. Monitor hemoglobin closely. Today is 8.5 with no active bleeding noted at this time. GI following and plan to do EGD/Colonoscopy in the am of 02/18/22. Recommend repeat am labs. Possible discharge in 24-48 hours. The impression and plan of care has been dictated by Leah Ridley, Nurse Practitioner as directed. Dr. Venancio MD I have performed a history and examination and MDM of this patient, discussed the same with the dictator, and agree with the dictator's assessment and plan as written ,documented as a scribe. Based on total visit time, I have performed more than 50% of the visit. Objective - Vital Signs Vital signs: Vital Signs Temp 97.9 F 02/17/22 08:00 Pulse 104 H 02/17/22 08:00 Resp 18 02/17/22 08:00 BP 136/99 02/17/22 08:00 Pulse Ox 94 L 02/17/22 08:00 FiO2 Intake & Output 02/16/22 02/17/22 02/17/22 18:59 06:59 18:59 Intake Total 250 Output Total 1 1 Balance 250 -1 -1 Intake: IV 10 Invasive Line 1 10 Oral 240 Output: Stool 1 1 Other: Voiding Method Toilet Toilet # Voids 2 1 # Bowel Movements 1 1 - Labs CBC & Chem 7: 02/17/22 05:44 02/15/22 06:58 Labs: Abnormal Lab Results - Last 24 Hours (Table) 02/16/22 02/17/22 Range/Units 08:22 05:44 WBC 12.1 H 11.5 H (3.8-10.6) k/uL RBC 3.61 L 3.42 L (4.30-5.90) m/uL Hgb 8.7 L 8.5 L (13.0-17.5) gm/dL Hct 29.5 L 27.6 L (39.0-53.0) % MCH 24.0 L 24.7 L (25.0-35.0) pg MCHC 29.5 L 30.6 L (31.0-37.0) g/dL Plt Count 616 H 604 H (150-450) k/uL Neutrophils # 10.0 H 10.1 H (1.3-7.7) k/uL Lymphocytes # 0.8 L (1.0-4.8) k/uL
[2022-02-18] MEDS: PANTOPRAZOLE 40 MG TABLET PO SCH ×2 (06:18→17:37)
[2022-02-18] MEDS: LEVOTHYROXINE 112 MCG TAB PO SCH (06:19)
[2022-02-18] MEDS: HYDROCORTISONE SUCCINATE 100 MG/2 ML VIAL IV SCH ×4 (08:01→23:23)
[2022-02-18] MEDS: FLUDROCORTISONE 0.1 MG TAB PO SCH (08:02)
[2022-02-18 09:16] LABS: Anisocytosis Slight; Basophils % (A) 0 %; Eosinophils % (A) 0 %; HCT 26.4 % (39.0-53.0); Hypochromasia Marked; Lymphocytes # (A) 1.1 k/uL (1.0-4.8); Lymphocytes % (A) 7 %; MCH 24.5 pg (25.0-35.0); MCHC 30.5 g/dL (31.0-37.0); MCV 80.3 fL (80.0-100.0); Mean Platelet Volume 6.6; Monocytes # (A) 0.5 k/uL (0-1.0); Monocytes % (A) 4 %; Neutrophils # (A) 12.7 k/uL (1.3-7.7); Neutrophils % (A) 87 %; Platelet Count 620 k/uL (150-450); Poikilocytosis Slight; RBC 3.29 m/uL (4.30-5.90); WBC 14.5 k/uL (3.8-10.6)
[2022-02-18 09:30] LABS: African American GFR (CKD) >90 (>60 ml/min/1.73 sqM); Anion Gap 5 mmol/L; Blood Urea Nitrogen 6 mg/dL (9-20); Calcium 7.9 mg/dL (8.4-10.2); Carbon Dioxide 32 mmol/L (22-30); Chloride 98 mmol/L (98-107); Glucose 72 mg/dL (74-99); Magnesium 2.3 mg/dL (1.6-2.3); Non-African American GFR(CKD) >90 (>60 ml/min/1.73 sqM); Potassium 4.5 mmol/L (3.5-5.1); Sodium 135 mmol/L (137-145)
[2022-02-18] MEDS ORDERED: LIDOCAINE 2% INJ 20 MG/ML (2 ML VIAL) ONE (11:31)
[2022-02-18] MEDS ORDERED: PROPOFOL 10 MG/ML 20 ML VIAL IV ONE (11:31)
[2022-02-18] MEDS ORDERED: LACTATED RINGERS 1,000 ML IV ONE (11:34)
--- NOTE | 2022-02-18 12:00 | P.PCN ---
Date of Procedure: 02/18/22 Procedure(s) Performed: Brief history: Patient is a pleasant 81-year-old white male admitted to the hospital with severe symptomatic anemia and intermittent rectal bleeding. Hemoglobin was 6.9 g/dL requiring PRBC transition. He scheduled for an upper endoscopy as well as colonoscopy to evaluate further. Procedure performed: Esophagogastroduodenoscopy with biopsy Colonoscopy with snare polypectomy and Endo Clip placement Preoperative diagnosis: Severe symptomatic anemia and intermittent rectal bleeding Anesthesia: [facility] Procedure: After informed consent was obtained from the patient was brought into the endoscopy unit and IV sedation was administered by anesthesia under continuous monitoring. Initially upper endoscopy was done. The Olympus GF 160 video endoscope was inserted inserted into the mouth and esophagus intubated without any difficulty and was gradually advanced into the stomach and duodenum and carefully examined. The bulb and second part of the duodenum appeared normal biopsies were done from the duodenum to rule out celiac disease.. The scope was then withdrawn into the stomach adequately insufflated with air and upon careful examination the antrum had mild gastritis and biopsies were done from this area. The body, cardia and fundus appeared normal. The scope was then withdrawn into the esophagus. The GE junction was located at 45 cm to the incisors. It appeared regular with no erythema erosions or ulcerations. Rest of the esophad diffuse whitish plaques consistent with Tara esophagitis and biopsies were done from this area. The patient tolerated the procedure well. At this time the patient continued to remain sedation. Initial digital rectal examination was normal. Olympus CF 160 video colonoscope was then inserted into the rectum and gradually advanced to the cecum without any difficulty. Careful examination was performed as the scope was gradually being withdrawn. The prep was fair. The cecum, ascending colon, appeared normal. In the mid transverse colon there was a 5 mm polyp that was removed by snare polypectomy. Immediately following polypectomy was discontinued identified and hence endoclips were placed with good hemostasis. The rest of the transverse colon, descending colon, sigmoid colon and rectum appeared normal. The proximal rectum there was a 1 cm polyp removed by snare polypectomy. Diffuse diverticulosis noted throughout the entire colon. Retroflexion was performed in the rectum and no lesions were noted. Patient tolerated the procedure well. Impression: 1. Upper endoscopy revealed whitish plaques involving the entire esophagus consistent with Tara esophagitis and mild antral gastritis 2. Colonoscopy revealed a 5 mm transverse colon polyp status post snare polypectomy followed by brisk bleeding, status post 2 Endo Clip placement with good hemostasis. 1 cm rectal polyp status post polypectomy and diffuse diverticulosis Recommendations: Findings of this examination were discussed with the patient as well as his family. He will be started on fluconazole so 100 mg daily for 5 days. Follow with the biopsy results. Diet will be advanced as tolerated.
[2022-02-18] MEDS: FLUCONAZOLE 100 MG TAB PO SCH (17:37)
--- NOTE | 2022-02-18 19:19 | P.PN ---
Subjective Progress Note Date: 02/18/22 Chief Complaint: Bloody stools This is a pleasant 41-year-old patient who follows with Dr. ordoñez. Chronic stable medical conditions include multiple endocrine neoplasm. Type IIb, weight medullary thyroid carcinoma. The latter is being managed conservatively. Chronic dysphagia, scoliosis, GERD, hypothyroid. At her baseline patient has one or 2 bowel movements a day. Patient also had bilateral adrenal gland removed in 2018 and paraganglioma removed in 2010. Patient did heavy alcohol drinking for about 10 years stopped in 2016. Patient was sent in for a hemoglobin of 7.9. Patient started noticing dark stools on February 03. No abdominal pain. Does feel tired and rundown. Patient did have a colonoscopy [address] Souza. Does not remember having a EGD. Patient also fell around February 03 and did hurt his ribs. Patient been having some bloody stools. February 15: Did receive a unit of blood yesterday. Some dock stool today. Liquid diet. Her endoscopy Thursday. No abdominal pain. February 16: Continues to have dark stool some bloody. No abdominal pain. Hemoglobi n stable. Unclear liquid diet. Endoscopy tomorrow. 02/17/2022 Patient is seen in follow-up this morning was initially scheduled to undergo EGD/colonoscopy with Dr. Dent today although was unable to complete the bowel prep. Patient was able to complete one glass of GoLYTELY and GI continues to f ollow and will continue with prep with possible endoscopically in the morning. Patient denies chest pain, shortness of breath, or palpitations. Patient is afebrile. Patient denies any nausea or vomiting and is currently clear liquids with the continued bowel prep. A follow-up with repeat labs and monitor hemoglobin closely. Patient denies any blood noted in the stool as patient also has had 4 loose stool episodes since starting the prep. Hemoglobin is stable today at 8.5. 02/18/2022 Patient is seen today and scheduled for EGD colonoscopy and was able to tolerate the bowel prep with no further bleeding noted. Patient hemoglobin is 8.0 today. Patient currently NPO for the procedure. Will await report. Diet to be resumed per GI after procedure. Patient is afebrile and denies any chest pain or shortness of breath. Active Medications Albuterol Sulfate (Albuterol Hfa Inhaler) 2 puff INHALATION RT-Q4H PRN PRN Reason: Shortness Of Breath Fluconazole (Fluconazole 100 Mg Tab) 100 mg PO DAILY [facility]; Protocol Stop: 02/21/22 09:01 Last Admin: 02/18/22 17:37 Dose: 100 mg Fludrocortisone Acetate (Fludrocortisone 0.1 Mg Tab) 0.1 mg PO DAILY [facility] Last Admin: 02/18/22 08:02 Dose: 0.1 mg Hydrocortisone Sodium Succinate (Hydrocortisone Succinate 100 Mg/2 Ml Vial) 25 mg IV Q8HR [facility] Last Admin: 02/18/22 17:38 Dose: 25 mg Levothyroxine Sodium (Levothyroxine 112 Mcg Tab) 112 mcg PO DAILY@0630 [facility] Last Admin: 02/18/22 06:19 Dose: 112 mcg Lorazepam (Lorazepam 2 Mg/Ml Inj) 0.5 mg IV Q6HR PRN PRN Reason: Anxiety Naloxone HCl (Naloxone 0.4 Mg/Ml 1 Ml Vial) 0.2 mg IV Q2M PRN PRN Reason: Opioid Reversal Ondansetron HCl (Ondansetron 4 Mg/2 Ml Vial) 4 mg IVP Q8HR PRN PRN Reason: Nausea And Vomiting Last Admin: 02/17/22 18:51 Dose: 4 mg Pantoprazole Sodium (Pantoprazole 40 Mg Tablet) 40 mg PO AC-BID [facility] Last Admin: 02/18/22 17:37 Dose: 40 mg Physical examination: GENERAL: thin built, emaciated, alert and oriented x3, loss of muscle mass subcutaneous fat. EYES: Pupils equal. Conjunctiva normal. HEENT: External appearance of nose and ears normal, oral cavity grossly normal. NECK: JVD not raised; masses not palpable. HEART: First and second heart sounds are normal; no edema. LUNGS: Respiratory rate normal; clear to auscultation. ABDOMEN: Soft, nontender,normal bowel sounds noted, no masses palpable. Incision scars PSYCH: Alert and oriented x3; mood and affect appropriate. MUSCULOSKELETAL: No Clubbing/cyanosis;muscles-grossly intact. Bony prominences. Scoliosis Assessment: -Acute GI bleed, upper cannot be ruled out. Scheduled for EGD/Colonoscopy today -Acute GI blood loss anemia. secondary to above -nikunj esophagitis and mild antral gastritis -5mm transverse colon polyp that required clipping x2 due to brisk bleed after polypectomy and 1cm rectal polyp and diffuse diverticulosis. -Severe protein calorie malnutrition. BMI 11.7 -Chronic adrenal insufficiency with bilateral adrenalectomy -Multiple endocrine neoplasm with medullary thyroid carcinoma -Chronic scoliosis -Hypothyroid -No code Plan: Continue current medications. Patient completed bowel prep and underwent EGD/colonoscopy showing white plaques along the entire esophagus consistent with nikunj esophagitis and mild antral gastritis with colonoscopy showing 5mm transverse colon polyp that required clipping x2 due to brisk bleed after polypectomy and 1cm rectal polyp and diffuse diverticulosis. Monitor hemoglobin closely. Today is 8.0 with no active bleeding noted at this time. GI following and recommend repeat am labs. Possible discharge in 24 hours if hemoglobin remains stable. Ok to resume diet per GI. Diflucan started. The impression and plan of care has been dictated by Leah Ridley, Nurse Pract itioner as directed. Dr. Venancio MD I have performed a history and examination and MDM of this patient, discussed the same with the dictator, and agree with the dictator's assessment and plan as written ,documented as a scribe. Based on total visit time, I have performed more than 50% of the visit. Objective - Vital Signs Vital signs: Vital Signs Temp 98.3 F 02/18/22 04:00 Pulse 103 H 02/18/22 08:00 Resp 16 02/18/22 08:00 BP 127/88 02/18/22 08:00 Pulse Ox 95 02/18/22 08:00 FiO2 Intake & Output 02/17/22 02/18/22 02/18/22 18:59 06:59 18:59 Intake Total 2800 Output Total 2 Balance -2 2800 Weight 39.009 kg Intake: Oral 2800 Output: Stool 2 Other: # Voids 2 # Bowel Movements 1 - Labs CBC & Chem 7: 02/18/22 07:35 02/18/22 07:35
[2022-02-19 04:35] VITALS: RESP 16; TEMP 97.8
[2022-02-19] MEDS: LEVOTHYROXINE 112 MCG TAB PO SCH (06:18)
[2022-02-19] MEDS: PANTOPRAZOLE 40 MG TABLET PO SCH (06:18)
[2022-02-19] MEDS: HYDROCORTISONE SUCCINATE 100 MG/2 ML VIAL IV SCH (08:33)
[2022-02-19] MEDS: FLUCONAZOLE 100 MG TAB PO SCH (08:34)
[2022-02-19] MEDS: FLUDROCORTISONE 0.1 MG TAB PO SCH (08:34)
[2022-02-19] MEDS ORDERED: metroNIDAZOLE 250 MG TABLET PO SCH (09:00)
[2022-02-19 09:46] LABS: Basophils % (A) 0 %; Eosinophils % (A) 0 %; HCT 26.7 % (39.0-53.0); Hypochromasia Marked; Lymphocytes % (A) 9 %; MCH 24.8 pg (25.0-35.0); MCHC 29.9 g/dL (31.0-37.0); MCV 82.9 fL (80.0-100.0); Mean Platelet Volume 6.9; Monocytes # (A) 0.6 k/uL (0-1.0); Monocytes % (A) 5 %; Neutrophils # (A) 9.6 k/uL (1.3-7.7); Neutrophils % (A) 84 %; Platelet Count 571 k/uL (150-450); Poikilocytosis Slight; RBC 3.22 m/uL (4.30-5.90); RDW 15.6 % (11.5-15.5); WBC 11.4 k/uL (3.8-10.6)
[2022-02-19 10:48] VITALS: BMI 10.9
[2022-02-19 13:21] VITALS: BP 123/81; PULSE 102
[2022-02-21 14:53] LABS: HIV-1 RNA Not detected (Not detected)
--- NOTE | 2022-02-24 09:22 | P.DS ---
Providers Date of admission: 02/14/22 01:36 Expected date of discharge: 02/19/22 Attending physician: Omar Stewart Consults: 02/14/22 01:37 Consult Physician Routine Consulting Provider: Ladonna Muller Consult Reason/Comments: GIB Do you want consulting provider notified?: Yes Primary care physician: Ulisses Teran Hospital Course: Final diagnosis -Acute GI bleed, upper cannot be ruled out. Scheduled for EGD/Colonoscopy today -Acute GI blood loss anemia. secondary to above -nikunj esophagitis and mild antral gastritis -5mm transverse colon polyp that required clipping x2 due to brisk bleed after polypectomy and 1cm rectal polyp and diffuse diverticulosis. -Severe protein calorie malnutrition. BMI 11.7 -Chronic adrenal insufficiency with bilateral adrenalectomy -Multiple endocrine neoplasm with medullary thyroid carcinoma -Chronic scoliosis -Hypothyroid -No code Discharge disposition Patient is being discharged in a stable condition with guarded prognosis to home. Patient will follow-up with Dr. Ulisses Teran in the outpatient setting upon discharge. Patient is to follow-up with GI Dr. Muller as scheduled. Prescription provided to follow-up with repeat labs to monitor hemoglobin closely. Total time taken is greater than 35 minutes. Hospital course This is a 41-year-old male admitted with significant anemia and GI bleed and being closely followed with GI. Patient underwent EGD and colonoscopy showing Nikunj esophagitis and mild antral gastritis along with 2 polyps in the colon that required clipping secondary to brisk bleeding and was monitored overnight with no further bleeding. Hemoglobin stable at 8 and recommend outpatient follow-up with GI along with repeat labs in 2-3 days to monitor CBC. Currently no reports of chest pain, no worsening shortness of breath, or palpitations. Patient is afebrile. No reports of nausea or vomiting and patient is tolerating diet. Patient will be discharged home today. Guarded prognosis. On exam vital signs are stable. Cardio S1, S2 are muffled. Respiratory system shows diminished breath sounds at the bases with no wheezing or rhonchi noted. Abdomen is soft and nontender. Nervous system shows no focal deficit. Please refer to medication reconciliation sheet for a list of medications. The impression and plan of care has been dictated by Nurse Lachelle Abdi as directed. Dr. Shane MD I have performed a history and examination and MDM of this patient, discussed the same with the dictator, and agree with the dictator's assessment and plan as written ,documented as a scribe. Based on total visit time, I have performed more than 50% of the visit. Patient Condition at Discharge: Stable Plan - Discharge Summary Discharge Rx Participant: Yes New Discharge Prescriptions: New Pantoprazole [Protonix] 40 mg PO AC-BID 30 Days #60 tab Fluconazole [Diflucan] 100 mg PO DAILY 10 Days #10 tab Continue Levothyroxine Sodium [Synthroid] 112 mcg PO DAILY Hydrocortisone 20 mg PO DAILY Naproxen 500 mg PO BID PRN #20 tablet PRN Reason: Pain Albuterol Nebulized [Ventolin Nebulized] 2.5 mg INHALATION RT-Q6H PRN PRN Reason: Shortness Of Breath Fludrocortisone Acetate 0.1 mg PO DAILY Albuterol Inhaler [Ventolin Hfa Inhaler] 2 puff INHALATION RT-Q4H PRN PRN Reason: Shortness Of Breath Hydrocortisone [Cortef] 15 mg PO DAILY@1600 Discharge Medication List Hydrocortisone 20 mg PO DAILY 01/25/19 [History] Levothyroxine Sodium [Synthroid] 112 mcg PO DAILY 01/25/19 [History] Naproxen 500 mg PO BID PRN #20 tablet 02/10/22 [Rx] Albuterol Inhaler [Ventolin Hfa Inhaler] 2 puff INHALATION RT-Q4H PRN 02/14/22 [History] Albuterol Nebulized [Ventolin Nebulized] 2.5 mg INHALATION RT-Q6H PRN 02/14/22 [History] Fludrocortisone Acetate 0.1 mg PO DAILY 02/14/22 [History] Hydrocortisone [Cortef] 15 mg PO DAILY@1600 02/14/22 [History] Fluconazole [Diflucan] 100 mg PO DAILY 10 Days #10 tab 02/19/22 [Rx] Pantoprazole [Protonix] 40 mg PO AC-BID 30 Days #60 tab 02/19/22 [Rx] Follow up Appointment(s)/Referral(s): Ladonna Muller MD [STAFF PHYSICIAN] - 04/08/22 4:00 pm () Ulisses Teran MD [Primary Care Provider] - 1-2 days Ambulatory/Diagnostic Orders: Complete Blood Count w/diff [LAB.AMB] Time Frame: 3 Days, Location: None Selected Patient Instructions/Handouts: Gastrointestinal Bleeding (DC), Esophagitis (DC) Activity/Diet/Wound Care/Special Instructions: Activity Limited until follow-up Follow-up with primary care provider on discharge Follow-up with GI in one week Continue taking Diflucan for 10 days Recommend repeat labs in 2-3 days to monitor hemoglobin Continue current diet Discharge Disposition: HOME SELF-CARE
== END 2022-02-19 15:27 | disposition home or self-care (01) | DRG 377 ==
LOC: EC 21:42 → 4SSUR 02-14 01:36 → 3SCARD 02-14 04:16
PROVIDERS: ADMIT Hospitalist; ATTEND Hospitalist
PROC: 0DBL8ZX Excision of Transverse Colon, Via Natural or Artificial Opening Endoscopic, Diagnostic (ICD-10-PCS; 2022-02-18)
PROC: 0DB58ZX Excision of Esophagus, Via Natural or Artificial Opening Endoscopic, Diagnostic (ICD-10-PCS; principal; 2022-02-18 10:40)
PROC: 0DB68ZX Excision of Stomach, Via Natural or Artificial Opening Endoscopic, Diagnostic (ICD-10-PCS; 2022-02-18 10:40)
PROC: 0DBP8ZX Excision of Rectum, Via Natural or Artificial Opening Endoscopic, Diagnostic (ICD-10-PCS; 2022-02-18 10:40)
DX: K29.71 Gastritis, unspecified, with bleeding (principal); E43 Unspecified severe protein-calorie malnutrition; D62 Acute posthemorrhagic anemia; K21.01 Gastro-esophageal reflux disease with esophagitis, with bleeding; Z68.1 Body mass index [BMI] 19.9 or less, adult; E27.49 Other adrenocortical insufficiency; B37.81 Candidal esophagitis; K63.5 Polyp of colon; R13.10 Dysphagia, unspecified; K52.9 Noninfective gastroenteritis and colitis, unspecified; E03.9 Hypothyroidism, unspecified; M41.9 Scoliosis, unspecified; K57.30 Diverticulosis of large intestine without perforation or abscess without bleeding; K62.1 Rectal polyp; Z98.890 Other specified postprocedural states; Z85.850 Personal history of malignant neoplasm of thyroid; Z79.52 Long term (current) use of systemic steroids; Z79.890 Hormone replacement therapy; Z79.899 Other long term (current) drug therapy; Z80.8 Family history of malignant neoplasm of other organs or systems
CPT/HCPCS: 36415; 43239; 45382; 45385; 80048; 80053; 83735; 84100; 84484; 85025; 85027; 85730; 86850; 86900; 86901; 86920; 87535; 88305; 88312; 99285

== ENCOUNTER → 2022-03-26 | Outpatient (CLI) | payer MEDICARE, OTHER ==
--- NOTE | 2022-03-27 05:29 | MR ---
EXAMINATION TYPE: MR abdomen wo/w con DATE OF EXAM: 03/26/2022 COMPARISON: None HISTORY: Hemorrhage of anus and rectum, history of intestinal bleeding, prior angel adrenalectomy, GB r emoved, hx thyroid cancer CONTRAST: Standard multiplanar, multisequence MRI departmental protocol images were obtained without contrast a nd with 4 mL intravenous Gadavist gadolinium contrast. Liver has normal size and contour. No sign of pleural effusion. Spleen is intact. The bile ducts are not dilated. There is no sign of a pancreatic mass. Stomach is intact. There is no sign of an adrenal mass. Kidneys have normal size and contour. There is normal enhancemen t of the kidneys with contrast. There are small right posterior renal cortical cysts. No hydronephros is. There is no sign of retroperitoneal adenopathy. No ascites. The bladder distends smoothly. No zachary e fluid in the pelvis. I see no bony destructive process. There is a thoracolumbar levoscoliotic defo rmity. The bony pelvis appears intact. No pathologic intestinal enhancement seen. There is normal enh ancement of the portal venous system. There is irregular elongated lesion in the lateral right lobe of the liver measuring 3 x 1.5 cm that shows delayed peripheral nodular enhancement and consistent with hemangioma. IMPRESSION: Hemangioma in the right lobe of the liver. No pelvic mass. No pathologic intestinal enhancement.
== END | disposition home or self-care (01) ==
LOC: RADMRIMAIN 08:10
PROVIDERS: ATTEND Pediatrics
DX: K76.89 Other specified diseases of liver (principal)
CPT/HCPCS: 74183; A9585